=== PATIENT | female | born 1975 | race Two or more races ===

== ENCOUNTER 2024-10-03 14:31 | Emergency (ER) | payer BC, SELFPAY ==
[2024-10-03 14:42] VITALS: BP 126/72; PULSE 70; RESP 18; TEMP 36.8; O2SAT 98
--- NOTE | 2024-10-03 15:01 | XR_ITS ---
Examination: PA lateral chest 2 views TECHNIQUE: Upright PA lateral chest 2 views Date and time: October 03, 2024 1602 hours INDICATIONS: Mid chest and lower abdominal pain beginning 3 weeks ago. FINDINGS: Normal heart size No pneumonia or pulmonary edema. The osseous structures are intact IMPRESSION: No active disease
--- NOTE | 2024-10-03 15:01 | XR_ITS ---
Examination: Abdomen sonogram, complete Date and time of exam: October 03, 2024 1528 hours INDICATIONS: Left upper abdominal pain this week. Technique: Multiple real-time grayscale transabdominal sonographic images of the abdomen have been obtained. Findings: Absent gallbladder Normal common bile duct 0.6 cm Pancreatic head 2.0 cm Aorta not enlarged Liver 16.5 cm no focal liver lesions Normal hepatopedal portal venous flow Patent IVC Right kidney 10.7 cm renal cortex 1.0 cm Left kidney 11.6 cm cortex 2.0 cm No hydronephrosis Spleen 10.8 cm IMPRESSION: No common bile duct stones Mild hepatomegaly Mild bilateral renal parenchymal scar formation
--- NOTE | 2024-10-03 15:01 | EKG_ITS ---
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
[2024-10-03 15:24] LABS: Basophils # (Auto) 0.0 Thou/mm3 (0.0-0.2); Basophils % (Auto) 0 % (0-2.5); Eosinophils # (Auto) 0.1 Thou/mm3 (0.0-0.5); Eosinophils % (Auto) 2 % (0-10); Hematocrit 35.6 % (36.0-46.0); Hemoglobin 11.9 g/dL (12.0-16.0); Immature Granulocytes Auto 0.01 Thou/mm3 (0.00-0.00); Lymphocytes # (Auto) 1.3 Thou/mm3 (1.0-4.8); Lymphocytes % (Auto) 25 % (10-50); Mean Corpuscular HGB Conc 33.4 g/dl (31.0-37.0); Mean Corpuscular Hemoglobin 27.2 pg (25.0-35.0); Mean Corpuscular Volume 82 fL (80-100); Monocytes # (Auto) 0.5 Thou/mm3 (0.0-0.8); Monocytes % (Auto) 9 % (0-12); Neutrophils # (Auto) 3.3 Thou/mm3 (1.8-7.7); Neutrophils % (Auto) 65 % (37-80); Nucleated Red Blood Cell # 0.00 Thou/mm3 (0.00-0.00); Nucleated Red Blood Cell % 0 /100 WBC (0); Platelet Count 277 Thou/mm3 (140-440); RDW Standard Deviation 38.2 fL (36.4-46.3); Red Blood Count 4.37 Miln/mm3 (4.00-5.20); White Blood Count 5.2 Thou/mm3 (3.6-11.0)
[2024-10-03 15:33] LABS: Collection Type, Urine Clean Catch
--- NOTE | 2024-10-03 15:37 | EDNOTE_ITS ---
ED Abdominal Pain RME/HPI General Chief Complaint: Abdominal Pain Stated complaint: Left upper abdominal pain X 3 weeks Time seen by provider: 10/03/24 14:34 Arrival date/time: 10/03/24 14:31 This is a 49-year-old female presents to the emergency department with complaints of upper abdominal pain reports pain has been intermittent for the last 3 weeks states has some mild burning especially in the a.m.'s when she wakes up. Denies any weight loss no nausea no vomiting no BRBPR. Source: patient Related Data Home Medications ?Medication ?Instructions ?Recorded ?Confirmed nortriptyline 10 mg capsule 10 mg PO HS 08/03/2308/02 Held on 08/03/23. Instructions: Resume on 08/04/23. omeprazole 20 mg capsule,delayed 20 mg PO QDAY 4 08/03/23 release Allergies Allergy/AdvReac Type Severity Reaction Status Date / Time NKA* Allergy Uncoded 10/03/24 14:36 Review of Systems Review of Systems Systems Reviewed: All systems reviewed, normal except as documented Narrative Review of Systems: Gen: No fever, no chills, no weight loss EYES: No discharge, no visual changes, no pain HEENT: No ear pain, no congestion, no sore throat PULM: No shortness of breath, no cough, no congestion CV: No chest pain, no dyspnea on exertion, no palpitations GI: No nausea, no vomiting, no diarrhea, ++ pain, no constipation : No frequency, no urgency,? no dysuria Musc/skel: No joint pain, no back pain Skin: No rash? Psyc: No hallucinations, no depression Heme/Lymph: No easy bleeding or bruising tendencies Neuro: No weakness, no headache ED Exam Narrative Physical exam: General: Sittiing in Exam table in no acute distress, answering questions appropriately HENT: normocephalic, atraumatic, EOMI, PERRLA, moist mucous membranes Chest: chest wall is nontender Cardiac: regular rate and rhythm, normal S1 and S2, no murmurs, rubs, or gallops, capillary refill ?2 seconds Pulmonary: clear to auscultation bilaterally, no wheezing, crackles, or rhonchi Abdominal: active bowel sounds, soft, nontender, nondistended Neuro: A&OX3, CN II-XII intact, sensation grossly intact bilaterally in UE and LE. Skin: no rashes, no ecchymosis Ext: no lower extremity edema Course Quality Measures none Orders Category Date Time Status EKG (ED ONLY) *Do not use* NOW Care 10/03/24 15:01 Completed EKG (ED Only) Stat Exams 10/03/24 15:01 Draft US abdomen Stat Exams 10/03/24 15:01 Completed XR chest 2V Stat Exams 10/03/24 15:01 Completed CBC Stat Lab 10/03/24 15:15 Completed Comprehensive Metabolic Panel Stat Lab 10/03/24 15:15 Completed HCG Qualitative,Urine Stat Lab 10/03/24 15:28 Completed Lipase Stat Lab 10/03/24 15:15 Completed Troponin I Stat Lab 09/25/24 17:00 Completed Troponin I Stat Lab 10/03/24 15:15 Completed Urinalysis Stat Lab 10/03/24 15:28 Completed Vital Signs Vital signs: Vital Signs Temperature 98.3 F 10/03/24 14:42 Pulse Rate 70 10/03/24 14:42 Respiratory Rate 18 10/03/24 14:42 Blood Pressure 126/72 10/03/24 14:42 Pulse Oximetry (%) 98 10/03/24 14:42 Oxygen Delivery Method Room Air 10/03/24 14:42 Abdominal Pain MDM MDM Narrative MDM Narrative:: 49-year-old female awake and alert with complaints of 3 weeks intermittent abdominal pain. No electrolyte imbalance no acute renal failure no acute leukocytosis. Urinalysis normal. No gallbladder sludge or stones. Mild anemia noted. At this time I feel the patient safe to be discharged home close follow-up with PCP advised to return if there is any worsening symptoms in condition. Patient data External records reviewed:: [facility] previous records Clinical information provided by:: patient Social determinants that could affect healthcare access:: none Patient has the following chronic illnesses:: None How is presenting disease/condition affected by chronic disease/condition?: no chronic disease Evaluation data The following diagnostics were reviewed and interpreted by me:: lab results and radiology exam(s) Lab and/or radiology exams considered but not ordered:: Yes Interpretation Summary: Examination: Abdomen sonogram, complete Date and time of exam: October 03, 2024 1528 hours INDICATIONS: Left upper abdominal pain this week. Technique: Multiple real-time grayscale transabdominal sonographic images of the abdomen have been obtained. Findings: Absent gallbladder Normal common bile duct 0.6 cm Pancreatic head 2.0 cm Aorta not enlarged Liver 16.5 cm no focal liver lesions Normal hepatopedal portal venous flow Patent IVC Right kidney 10.7 cm renal cortex 1.0 cm Left kidney 11.6 cm cortex 2.0 cm No hydronephrosis Spleen 10.8 cm IMPRESSION: No common bile duct stones Mild hepatomegaly Mild bilateral renal parenchymal scar formation Medications / Prescriptions Medications or Prescriptions considered but not ordered:: No Medication administrations:: no Consultations Consultation(s) initiated? (list below): No Diagnosis Differential diagnosis abdominal pain: abdominal pain, acute appendicitis, calculus of kidney, constipation, diverticulitis, gastroenteritis and pancreatitis Most likely diagnosis given after review of the tests above:: Gastroenteritis Admission Indicated Admission indicated?: not indicated Admission Request Was there a request for admission?: No Disposition Plan Disposition Plan: Discharge Discharge Attestation Discharge Attestation: The patient and all family members were given an opportunity to ask questions and understood the discharge instructions. Discharge instructions specifically effects, indications for sooner follow up or return to the emergency department, and the expected course of current diagnosis. Patient condition: Stable Discharge Plan Plan Patient Disposition: HOME (Self Care) Patient condition on transfer: Stable Prescriptions/Referrals Prescriptions/Med Rec: No Action nortriptyline 10 mg capsule 10 mg PO HS Patient Comments: take 1 capsule by mouth at bedtime omeprazole 20 mg capsule,delayed release(DR/EC) 20 mg PO QDAY Patient Comments: take 1 capsule by mouth once daily Referrals: No Primary/Family,Physician [Primary Care Provider] - In 1 week Problem List Clinical Impression: Abdominal pain Patient/Caregiver Discharge Instructions Discharge Activity: activity as tolerated Education Materials: Abdominal Pain, Anemia, ED Chest Wall Pain, Costochondritis Additional Instructions: Please make sure you follow-up with your primary doctor for further evaluation. Your cardiac numbers markers were normal today. Your EKG was normal. Your blood level did come back slightly anemic In which you can increase your foods and supplements high rich in iron. Please return to the emergency department this any worsening symptoms or change in condition. Print Language: Welsh Stand Alone Forms: Meg Award Info., Work/School Release, Patient Portal Info Letter PA/KRISTIAN Supervising Physician PA/KRISTIAN Supervising Physician: Dr. Garzon
[2024-10-03 15:43] LABS: Alanine Aminotransferase 32 U/L (10-49); Albumin, Serum 4.7 gm/dL (3.5-5.0); Albumin/Globulin Ratio 1.8 (1.2-2.2); Alkaline Phosphatase 64 U/L (46-116); Anion Gap 8 (7-16); Aspartate Amino Transferase 23 U/L (0-34); BUN/Creatinine Ratio 14 Ratio (12-20); Bilirubin,Total 0.5 mg/dL (0.3-1.2); Blood Urea Nitrogen 10 mg/dL (9-23); Calcium 9.1 mg/dL (8.3-10.6); Calcium (Corrected) 9.1 mg/dL (8.5-10.1); Carbon Dioxide 28.7 mMol/L (20.0-31.0); Chloride 105 mMol/L (98-107); Creatinine (Component) 0.7 mg/dL (0.6-1.3); Globulin 2.6 gm/dL (2.3-3.5); Glucose 93 mg/dL (74-106); Lipase 43 U/L (12-53); Osmolality,Calculated 282 (275-295); Potassium 3.5 mMol/L (3.4-5.1); Sodium 142 mMol/L (136-145); Total Protein 7.3 gm/dL (5.7-8.2); Troponin I < 0.002 ng/mL (0.0-0.045); eGFR > 60 See Note
[2024-10-03 15:43] LABS: Bacteria,Urine Rare; Bilirubin,Urine Negative (Negative); Blood,Urine Negative (Negative); Clarity,Urine Clear (Clear/Hazy); Color,Urine Lt-Yellow (Lt Yel-Yel); Glucose, Urine Negative (Negative); Ketones,Urine Negative (Negative); Leukocyte Esterase,Urine Negative (Negative); Nitrite,Urine Negative (Negative); PH,Urine 6.0 (5.0-7.0); Protein,Urine Negative (Neg - Trace); RBC,Urine 2 /hpf (0-3); Specific Gravity,Urine 1.019 (1.001-1.035); Squamous Epithelial Cell,Urine 2 /hpf (0-5); Urobilinogen,Urine Negative mg/dL (0.0-1.0); WBC,Urine 1 /hpf (0-5)
[2024-10-03 15:55] LABS: HCG Qualitative,Urine Negative
[2024-10-03 17:32] VITALS: BP 121/74; PULSE 59; RESP 17; TEMP 36.8; O2SAT 99
[2024-10-03 17:48] LABS: Troponin I < 0.002 ng/mL (0.0-0.045)
== END 2024-10-03 18:08 | disposition home or self-care (01) ==
PROVIDERS: Nurse Practitioner Primary Care; Emergency Provider Emergency Medicine
DX: N28.89 Other specified disorders of kidney and ureter (principal); R16.0 Hepatomegaly, not elsewhere classified; D64.9 Anemia, unspecified; R10.30 Lower abdominal pain, unspecified; R07.89 Other chest pain; R00.1 Bradycardia, unspecified
CPT/HCPCS: 36415; 71046; 76700; 80053; 81001; 81025; 83690; 84484; 85025; 93005; 99283